=== PATIENT | male | born 2000 | race Caucasian/White ===

== ENCOUNTER 2022-04-01 12:38 | Emergency (ER) | payer OTHER | END 2022-04-01 16:17 | disposition home or self-care (01) | LOC: ERS 12:38 | DX: S06.9X1A Unspecified intracranial injury with loss of consciousness of 30 minutes or less, initial encounter (principal); W22.8XXA Striking against or struck by other objects, initial encounter; Y93.89 Activity, other specified | CPT/HCPCS: 70450 ==